=== PATIENT | male | born 1970 | race Caucasian/White ===

== ENCOUNTER → 2025-01-13 09:37 | Outpatient (REF) | payer BC, SELFPAY | LOC: WDC 09:37 | PROVIDERS: ATTENDING PHYSICIAN Family Medicine | DX: N63.21 Unspecified lump in the left breast, upper outer quadrant (principal) | CPT/HCPCS: 76642; 77062; 77066 ==

== ENCOUNTER → 2025-01-20 09:59 | Outpatient (REF) | payer BC, SELFPAY ==
--- NOTE | 2025-01-20 13:21 | OID.BR.INTR ---
[facility] Navigator - Initial
- -
Date of Contact: 01/20/25
Met with patient. Will follow up as needed per protocol.
== END ==
LOC: WDC 09:59
PROVIDERS: ATTENDING PHYSICIAN Family Medicine
DX: N63.22 Unspecified lump in the left breast, upper inner quadrant (principal)
CPT/HCPCS: 19083; 88305; 88341; 88342; A4648

== ENCOUNTER 2025-03-08 06:17 | Day surgery (SDC) | payer BC, SELFPAY ==
[2025-02-23 09:04] LABS: Hematocrit 43.1 % (39.0-52.0); Hemoglobin 14.6 g/dL (13.0-18.0); Mean Corp Hgb Conc. 33.9 g/dL (33.0-37.0); Mean Corpuscular Volume 96.6 fL (80.0-94.0); Platelet Count 285 10^3/uL (130-400); Red Cell Dist. Width 12.4 % (11.5-14.5)
[2025-02-23 09:33] LABS: ALT (SGPT) 38 U/L (0-50); AST (SGOT) 38 U/L (17-59); Albumin 4.8 g/dl (3.5-5.0); Alkaline Phosphatase 63 U/L (38-126); Blood Urea Nitrogen 15 mg/dl (9-20); Calcium 9.8 mg/dl (8.4-10.2); Carbon Dioxide 29 mmol/L (22-30); Chloride 105 mmol/L (98-107); Glucose 93 mg/dl (70-99); Potassium 5.2 mmol/L (3.5-5.1); Sodium 140 mmol/L (135-145); Total Protein 7.8 g/dl (6.3-8.2); eGFR > 60.00
[2025-02-23 09:40] LABS: Prealbumin (Transthyretin) 28.8 mg/dl (17.6-36.0)
[2025-02-23 09:53] LABS: Vitamin D, 25-OH*** 48.4 ng/mL (30-80)
[2025-02-23 13:59] VITALS: BMI 28.9
[2025-03-08 10:34] VITALS: BP 163/90; BMI 28.9
[2025-03-08] MEDS: TYLENOL 1000 MG PO (10:45)
[2025-03-08] MEDS: NORMOSOL-R/PLASMALYTE-A 1000 IV (10:45)
--- NOTE | 2025-03-08 12:49 | W.IMMPOSTOP ---
Surgical Immed Post Op Note
-
Primary Surgeon: Marva
Assisting Surgeon: None
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
Post-op Diagnosis: Same
Procedure Performed: Left lumpectomy
Anesthesia Type: TIVA
Specimen / Cultures:Left breast mass
Estimated Blood Loss: 6cc
Complications: None
Operative Findings: None
--- NOTE | 2025-03-08 12:54 | OR.RPT ---
Operative Report
Operative Report
Date of procedure: 03/08/2025
Surgeon: Marva
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
Postoperative diagnosis: Same
: Procedure left lumpectomy
The patient is a 54-year-old male who noticed a painful enlarging mass in his left breast. This underwent workup and subsequent ultrasound-guided biopsy showing a spindle cell tumor for which complete resection was indicated. He presents now for
lumpectomy. On the day of the procedure the patient presented to the same-day surgical services unit. He was prepped and verified site and procedure. DVT and antibiotic prophylaxis were provided. He was taken to the operating room and in the
supine position intravenous sedation was delivered. He underwent a wet shave of the chest region involved. The left chest was prepped and draped in the usual sterile fashion and all team members performed timeout procedure.
Tissues were anesthetized with 1% lidocaine plain. A curvilinear incision overlying the palpable mass was made sharply with the blade. Skin flaps were elevated using the cautery. A wide lumpectomy was performed of the mass taking care not to
dissect into it. The tumor did go down to the chest wall and pectoralis fascia was removed with the specimen. Time out of body was noted and the specimen was oriented for the pathologist and sent for permanent analysis.
Hemostasis was maintained with the cautery. A portion of the Surgicel was placed in the resection cavity and Marcaine 0.5% plain was instilled into all tissues. Hemoclips were also placed in case high-grade lesion is diagnosed and the patient
requires radiation therapy.
The wound was closed using simple interrupted 3-0 Vicryl's on subcutaneous tissue and a running subcuticular 4-0 Monocryl on skin. Surgical glue and a sterile compressive dressing were applied. All sponge needle and instrument counts were correct
and the patient was transferred to the recovery room in stable condition
()
[2025-03-08 12:56] VITALS: BP 102/68
[2025-03-08 13:00] VITALS: BP 101/68
[2025-03-08 13:15] VITALS: BP 116/76
[2025-03-08 13:30] VITALS: BP 127/79
== END 2025-03-08 13:50 | disposition home or self-care (01) ==
LOC: SDS 06:17
PROVIDERS: ATTENDING PHYSICIAN Surgery; FAMILY PHYSICIAN Family Medicine
DX: D24.2 Benign neoplasm of left breast (principal)
CPT/HCPCS: 19301; 36415; 80053; 82306; 84134; 85027; 88307; 93005

== ENCOUNTER → 2025-03-30 14:19 | Outpatient (REF) | payer BC, SELFPAY | LOC: WDC 14:19 | PROVIDERS: ATTENDING PHYSICIAN Surgery | DX: N64.89 Other specified disorders of breast (principal) | CPT/HCPCS: 76642 ==

== ENCOUNTER → 2025-04-12 08:36 | Outpatient (REF) | payer BC, SELFPAY ==
[2025-04-12 08:55] VITALS: BP 145/93; BP_SYST 81
[2025-04-12 09:56] VITALS: BP 133/92; BP_SYST 87
[2025-04-12 10:24] VITALS: BP 133/92
== END ==
LOC: RADI 08:36
PROVIDERS: ATTENDING PHYSICIAN Surgery; FAMILY PHYSICIAN Family Medicine
DX: M96.843 Postprocedural seroma of a musculoskeletal structure following other procedure (principal); Y83.8 Other surgical procedures as the cause of abnormal reaction of the patient, or of later complication, without mention of misadventure at the time of the procedure
CPT/HCPCS: 10030

== ENCOUNTER → 2025-05-03 10:25 | Outpatient (REF) | payer OTHER, SELFPAY | LOC: EMG 10:25 | PROVIDERS: ATTENDING PHYSICIAN Family Medicine | DX: R20.2 Paresthesia of skin (principal) | CPT/HCPCS: 95886; 95911 ==